=== PATIENT | female | born 1950 | race Caucasian/White ===

== ENCOUNTER 2017-07-12 21:37 | Observation (INO) | payer MEDICARE, OTHER ==
[2017-07-12] VITALS (9 sets, daily range): BP systolic 144–258; BP diastolic 73–128; PULSE 56–63; RESP 16–20; TEMP 98.3–98.7; O2SAT 97–99
[~2017-07-12] VITALS: Ht 157.5 cm; Wt 71.4 kg
[~2017-07-12 21:37] MED LIST: ALPR-138 PO; ASPI81 PO; BETA PO; LOSA25TA31 PO; PARO10S PO; SIMV5TAB32 PO
--- NOTE | 2017-07-12 22:12 | PD ---
Physical Exam Time Seen by Provider: 22:09 Narrative 66yo F c/o high blood pressure x couple days. Has taken BP medication as prescribed. +chest pressure, TRUJILLO and nausea. Denies SOB, blurred vision, vomiting. Patient seen in triage. VS reviewed. Awaiting bed placement. Data Data Last Documented VS Vital Signs Date Time Temp Pulse Resp B/P (MAP) Pulse Ox O2 Delivery O2 Flow Rate FiO2 07/12/17 21:39 98.7 58 16 258/128 (171) 97 Room Air [facility] Supervised Visit with KUSHAL: Cherry Yanez Jul 12, 2017 22:12
[2017-07-12] MEDS ORDERED: ENALAPRILAT 2.5 MG/2 ML VIAL IV PUSH ONE (22:30)
[2017-07-12] MEDS ORDERED: SODIUM CHLORIDE 0.9% FLUSH 10 ML FLUSH IVF PRN (22:30)
[2017-07-12] MEDS ORDERED: niCARdipine INJ 25 MG in SODIUM CHLOR 0.9% 250 ML INJ 250 ML IV ONE (22:30)
--- NOTE | 2017-07-12 22:37 | PD ---
HPI Chief Complaint: Chest Pain Time Seen by Provider: 22:25 (Luiz Amos) Time Seen by Provider: 23:11 (Terrence Bruno MD) Travel History International Travel<30 days: No Contact w/Intl Traveler<30days: No Traveled to known affect area: No (Luiz Amos) History of Present Illness HPI 66 year old female history of hypertension who presents for evaluation of hypertension, headache and chest heaviness. She reports that whenever her blood pressures elevated she feels a heaviness in her chest as well as a frontal headache. She felt the symptoms today and so she checked her blood pressure 250 systolic at the pharmacy. She reports that usually when she takes her Xanax her blood pressure improves. She says that this is the highest that she has seen her blood pressure. She is currently prescribed Cozaar 50 mg, Carolon 10 mg, which she has been compliant with however she did not take it tonight. The frontal headache is an aching pain which is constant, not thunderclap in nature and not the worst headache of her life. She reports that the chest heaviness is anterior and constant, worsened with hypertension. She denies any shortness of breath, nausea or vomiting, weakness, slurred speech, confusion. She has no personal history of coronary artery disease, diabetes, hyperlipidemia. She reports maternal history of coronary artery disease. Her last stress test was 15 years ago and she believes that it was normal. No other complaints. (Luiz Amos) PFSH Past Medical History Hx Anticoagulant Therapy: Yes (ASA) Cardiovascular Problems: Yes (HTN) High Cholesterol: Yes Hypertension: Yes Menopausal: Yes : 1 Para: 1 (Luiz Amos) Past Surgical History Section: Yes Other Surgery: Yes (HEMORRHOID SX) (Luiz Amos) Social History Alcohol Use: No Tobacco Use: No Substance Use: No (Luiz Amos) Allergies-Medications (Allergen,Severity, Reaction): Coded Allergies: No Known Allergies (Verified , 07/12/17) Reported Meds & Prescriptions Reported Meds & Active Scripts Active Reported Aspirin 81 (Aspirin) 81 Mg Tabdr 81 Mg PO DAILY Paxil (Paroxetine HCl) 10 Mg Tab 20 Mg PO DAILY Simvastatin 40 Mg Tab 40 Mg PO HS Cozaar (Losartan Potassium) 50 Mg Tab 50 Mg PO DAILY Betaxolol (Betaxolol HCl) 10 Mg Tab 10 Mg PO DAILY Xanax (Alprazolam) 0.25 Mg Tab 0.25 Mg PO Q6H PRN (Terrence Bruno MD) Review of Systems Except as stated in HPI: all other systems reviewed are Neg (Luiz Amos) Physical Exam Narrative GENERAL: Pleasant well developed well-nourished female in no acute distress her vital signs have been reviewed. SKIN: Warm and dry. HEAD: Atraumatic. Normocephalic. EYES: Pupils equal and round. No scleral icterus. No injection or drainage. ENT: No nasal bleeding or discharge. Mucous membranes pink and moist. NECK: Trachea midline. No JVD. CARDIOVASCULAR: Regular rate and rhythm. No murmur appreciated. RESPIRATORY: No accessory muscle use. Clear to auscultation. Breath sounds equal bilaterally. GASTROINTESTINAL: Abdomen soft, non-tender, nondistended. Hepatic and splenic margins not palpable. MUSCULOSKELETAL: No obvious deformities. No clubbing. No cyanosis. No edema. NEUROLOGICAL: Awake and alert. No obvious cranial nerve deficits. Motor grossly within normal limits. Normal speech. PSYCHIATRIC: Appropriate mood and affect; insight and judgment normal. (Luiz Amos) Data Data Last Documented VS Vital Signs Date Time Temp Pulse Resp B/P (MAP) Pulse Ox O2 Delivery O2 Flow Rate FiO2 07/13/17 00:08 56 20 147/80 (102) 98 Nasal Cannula 2.00 07/12/17 22:52 98.3 (Terrence Bruno MD) Orders Orders Electrocardiogram (07/12/17 22:29) Basic Metabolic Panel (Bmp) (07/12/17 22:29) Ckmb (Isoenzyme) Profile (07/12/17 22:29) Complete Blood Count With Diff (07/12/17 22:29) Magnesium (Mg) (07/12/17 22:29) Prothrombin Time / Inr (Pt) (07/12/17 22:29) Act Partial Throm Time (Ptt) (07/12/17 22:29) Troponin I (07/12/17 22:29) Chest, Single Ap (07/12/17 22:29) Ecg Monitoring (07/12/17 22:29) Bilateral Bp Monitoring (07/12/17 22:29) Iv Access Insert/Monitor (07/12/17 22:29) Oximetry (07/12/17 22:29) Oxygen Administration (07/12/17 22:29) Sodium Chloride 0.9% Flush (Ns Flush) (07/12/17 22:30) Enalaprilat Inj (Vasotec Inj) (07/12/17 22:30) Ct Brain W/O Iv Contrast(Rout) (07/12/17 ) Nicardipine Inj (Cardene Inj) (07/12/17 22:30) Aspirin Chew (Aspirin Chew) (07/12/17 23:45) Nitroglycerin Sl (Nitrostat Sl) (07/12/17 23:45) Admit Order (Ed Use Only) (07/13/17 00:06) (Terrence Bruno MD) Labs Laboratory Tests Test 07/12/17 22:40 White Blood Count 7.1 TH/MM3 Red Blood Count 4.41 MIL/MM3 Hemoglobin 13.7 GM/DL Hematocrit 40.5 % Mean Corpuscular Volume 91.9 FL Mean Corpuscular Hemoglobin 31.1 PG Mean Corpuscular Hemoglobin Concent 33.9 % Red Cell Distribution Width 13.5 % Platelet Count 258 TH/MM3 Mean Platelet Volume 9.4 FL Neutrophils (%) (Auto) 44.9 % Lymphocytes (%) (Auto) 42.1 % Monocytes (%) (Auto) 9.0 % Eosinophils (%) (Auto) 3.4 % Basophils (%) (Auto) 0.6 % Neutrophils # (Auto) 3.2 TH/MM3 Lymphocytes # (Auto) 3.0 TH/MM3 Monocytes # (Auto) 0.6 TH/MM3 Eosinophils # (Auto) 0.2 TH/MM3 Basophils # (Auto) 0.0 TH/MM3 CBC Comment DIFF FINAL Differential Comment Prothrombin Time 10.0 SEC Prothromb Time International Ratio 0.9 RATIO Activated Partial Thromboplast Time 25.0 SEC Blood Urea Nitrogen 16 MG/DL Creatinine 0.87 MG/DL Random Glucose 89 MG/DL Calcium Level 8.8 MG/DL Magnesium Level 2.6 MG/DL Sodium Level 141 MEQ/L Potassium Level 4.1 MEQ/L Chloride Level 103 MEQ/L Carbon Dioxide Level 29.5 MEQ/L Anion Gap 9 MEQ/L Estimat Glomerular Filtration Rate 65 ML/MIN Total Creatine Kinase 64 U/L Troponin I LESS THAN 0.02 NG/ML (Terrence Bruno MD) [facility] Medical Decision Making Medical Screen Exam Complete: Yes Emergency Medical Condition: Yes Medical Record Reviewed: Yes Interpretation(s) EKG sinus bradycardia rate 57 Differential Diagnosis Hypertension, hypertensive urgency, hypertensive emergency, acute coronary syndrome, aortic dissection, pneumothorax, pulmonary embolism, tension headache , migraine headache, intracranial hemorrhage Narrative Course 66-year-old female here for evaluation of hypertension, chest pressure and frontal headache. Physical examination is reassuring. The patient will be placed on ECG monitoring pulse oximetry. A 12-lead EKG was obtained interpreted. Plan is for basic lab work, chest x-ray, CT brain. She was placed on a Cardene drip for her severe hypertension. The patient's lab work and imaging studies have been reviewed and found be reassigned. Her blood pressure is improved to 146/78 on Cardene drip. Her discomfort as improved. She will be given a full dose aspirin as well as a nitroglycerin. This point in time the plan would be to admit the patient for further treatment of her hypertensive urgency, chest pain, cephalgia. Discussed with Dr. Chavarria who is agreeable with admission to Dr. Escobar, requests transitional orders to be placed. Because the patient is on a Cardene drip she is being placed into the intensive care unit. (Luiz Amos) Procedures EKG Prior to Arrival: Yes (Luiz Amos) Diagnosis Primary Impression: Hypertensive urgency Additional Impressions: Chest pain Qualified Codes: R07.9 - Chest pain, unspecified Cephalgia Qualified Codes: R51 - Headache Admitting Information Admitting Physician Requests: Admit (Luiz Amos) Luiz Amos Jul 12, 2017 22:37 Terrence Bruno MD Jul 13, 2017 10:14
--- NOTE | 2017-07-12 23:13 | RADRPT ---
EXAM DATE/TIME: 07/12/2017 22:24 [facility] COMPARISON: CHEST SINGLE AP, November 07, 2010, 13:31. INDICATIONS : Chest pain MEDICAL HISTORY : Hypertension. SURGICAL HISTORY : None. ENCOUNTER: Initial ACUITY: 1 week PAIN SCORE: 9/10 LOCATION: chest FINDINGS: A single view of the chest demonstrates the lungs to be symmetrically aerated without evidence of mas s, infiltrate or effusion. The cardiomediastinal contours are unremarkable. Osseous structures are intact. CONCLUSION: No acute disease. Jason Montano MD on July 12, 2017 at 23:11 Board Certified Radiologist. This report was verified electronically.
[2017-07-12 23:19] LABS: AUTOMATED NEUTROPHIL # 3.2 TH/MM3 (1.8-7.7); BASOPHIL % 0.6 % (0.0-2.0); EOSINOPHIL # 0.2 TH/MM3 (0-0.4); EOSINOPHIL % 3.4 % (0.0-4.0); HEMATOCRIT 40.5 % (35.0-46.0); HEMO FLAGS DIFF FINAL; LYMPH % 42.1 % (9.0-44.0); MEAN CELL VOLUME 91.9 FL (80.0-100.0); MEAN CORPUSCULAR HEMOGLOBIN 31.1 PG (27.0-34.0); MEAN CORPUSCULAR HGB CONC 33.9 % (32.0-36.0); NEUT % 44.9 % (16.0-70.0); PLATELET COUNT 258 TH/MM3 (150-450); RED BLOOD COUNT 4.41 MIL/MM3 (4.00-5.30); RED CELL DISTRIBUTION WIDTH 13.5 % (11.6-17.2); WHITE BLOOD COUNT 7.1 TH/MM3 (4.0-11.0)
[2017-07-12 23:25] LABS: ANION GAP 9 MEQ/L (5-15); BICARBONATE 29.5 MEQ/L (21.0-32.0); BLOOD UREA NITROGEN 16 MG/DL (7-18); CHLORIDE 103 MEQ/L (98-107); GLOMERULAR FILTRATION RATE 65 ML/MIN (>89); MAGNESIUM 2.6 MG/DL (1.5-2.5); POTASSIUM 4.1 MEQ/L (3.5-5.1); SODIUM (NA) 141 MEQ/L (136-145)
[2017-07-12 23:33] LABS: CREATINE KINASE 64 U/L (26-192)
--- NOTE | 2017-07-12 23:36 | RADRPT ---
EXAM DATE/TIME: 07/12/2017 23:13 [facility] COMPARISON: No previous studies available for comparison. INDICATIONS : Cephalgia. RADIATION DOSE: 56.77 CTDIvol (mGy) MEDICAL HISTORY : Hypertension. SURGICAL HISTORY : None. ENCOUNTER: Initial ACUITY: 1 day PAIN SCALE: 6/10 LOCATION: cranial TECHNIQUE: Multiple contiguous axial images were obtained of the head. Using automated exposure control and adj ustment of the mA and/or kV according to patient size, radiation dose was kept as low as reasonably a chievable to obtain optimal diagnostic quality images. DICOM format image data is available electro nically for review and comparison. FINDINGS: CEREBRUM: The ventricles are within normal limits. No evidence of midline shift, mass lesion, hemorrhage or ac eagle infarction. No extra-axial fluid collections are seen. POSTERIOR FOSSA: The cerebellum and brainstem are intact. The 4th ventricle is midline. The cerebellopontine angle i s unremarkable. EXTRACRANIAL: Visualized sinuses demonstrate no significant abnormality. SKULL: The calvaria is intact. No evidence of skull fracture. CONCLUSION: No acute intracranial abnormality is identified. Jason Flores MD on July 12, 2017 at 23:32 Board Certified Radiologist. This report was verified electronically.
[2017-07-12 23:38] LABS: INTERNATIONAL NORMALIZED RATIO 0.9 RATIO
[2017-07-12] MEDS ORDERED: NITROGLYCERIN 0.4 MG SL 25 TABS/BTL SL ONE (23:45)
[2017-07-12] MEDS ORDERED: ASPIRIN 81 MG CHEW TAB PO ONE (23:45)
[2017-07-13] VITALS (21 sets, daily range): BP systolic 127–164; BP diastolic 67–80; PULSE 50–84; RESP 16–21; TEMP 97.7–98.4; O2SAT 95–100
[2017-07-13] MEDS ORDERED: SODIUM CHLORIDE 0.9% FLUSH 10 ML FLUSH IV FLUSH PRN (00:15)
[2017-07-13] MEDS ORDERED: ASPI-110 PO (00:37)
[2017-07-13] MEDS ORDERED: ALPR.25 PO (00:37)
[2017-07-13] MEDS ORDERED: PAXI10TA2 PO (00:37)
[2017-07-13] MEDS ORDERED: BETA10TA PO (00:37)
[2017-07-13] MEDS ORDERED: SIMV40TA PO (00:37)
[2017-07-13] MEDS ORDERED: COZA50TA PO (00:37)
[2017-07-13] MEDS ORDERED: CHLORHEXIDINE GLUCONATE 2 % 1 PACK (2 CLOTHS)(extra cloths) TOPICAL PRN (03:15)
[2017-07-13 03:45] LABS: CREATINE KINASE 61 U/L (26-192)
[2017-07-13] MEDS: CHLORHEXIDINE GLUCONATE 2 % 1 PACK (2 CLOTHS)(taper/protocol) TOPICAL SCH (03:46)
[2017-07-13 06:10] LABS: CREATINE KINASE 50 U/L (26-192)
[2017-07-13] MEDS ORDERED: ALPRAZolam 0.25 MG TAB PO PRN (09:00)
[2017-07-13] MEDS: LOSARTAN 50 MG TAB PO SCH (09:58)
[2017-07-13] MEDS: ASPIRIN EC 81 MG TABEC PO SCH (09:59)
[2017-07-13] MEDS: PARoxetine HCL 20 MG TAB PO SCH (09:59)
[2017-07-13] MEDS: SODIUM CHLORIDE 0.9% FLUSH 10 ML FLUSH IV FLUSH SCH ×2 (09:59→20:44)
[2017-07-13] MEDS ORDERED: ACETAMINOPHEN 325 MG TAB PO PRN (10:00)
[2017-07-13] MEDS ORDERED: ONDANSETRON HCL 4 MG/2 ML VIAL IV PRN (10:00)
--- NOTE | 2017-07-13 10:11 | HHI.HP ---
HPI Service [facility] Hospitalists Primary Care Physician Dr. Arian Zhao Admission Diagnosis hypertensive urgency, chest pain, headache Chief Complaint: Headache Travel History International Travel<30 Days: No Contact w/Intl Traveler <30 Da: No Traveled to Known Affected Are: No History of Present Illness Ms. Hanson is a pleasant 66 y/o female with HTN, hyperlipidemia, and anxiety. She presented to the ED on 07/12/17 for evaluation of elevated BP, headache and chest heaviness. 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 Yesterday afternoon her blood pressure elevated with systolic BP into the 160's. She started having a frontal headache and some chest heaviness which she reports this has happened previously when her BP elevates. When this has happened in the past she typically will lie down and put a cold cloth on her head and take a Xanax which usually improves her BP. She rechecked her blood pressure later that evening and it was 250+ systolic at the pharmacy. She says that this is the highest that she has seen her blood pressure. This prompted her to come to the ED for further evaluation. She is currently prescribed Cozaar 50 mg daily and Betaxolol 10 mg daily which she has been compliant with. The frontal headache was more of an aching pain which was constant. She reports that the chest heaviness is left anterior and constant, worsened with hypertension. She denies any shortness of breath, nausea or vomiting, weakness, slurred speech, confusion. She denies any history of coronary artery disease, diabetes, hyperlipidemia. She reports maternal history of coronary artery disease. Her last stress test was 15 years ago and she believes that it was normal. Pt was started on a Cardene gtt at admission with improvement in her BP. This was stopped overnight. Her headache and chest heaviness resolved with the improvement in her BP. Review of Systems Constitutional: DENIES: Fever, Chills Eyes: COMPLAINS OF: Blurred vision (while she had the headache) Ears, nose, mouth, throat: DENIES: Hearing loss Respiratory: DENIES: Cough Cardiovascular: COMPLAINS OF: Chest pain, DENIES: Palpitations, Lower Extremity Edema Gastrointestinal: DENIES: Abdominal pain, Diarrhea, Nausea, Vomiting Genitourinary: DENIES: Hematuria, Dysuria Musculoskeletal: DENIES: Back pain, Neck pain Integumentary: DENIES: Rash Neurologic: COMPLAINS OF: Headache, DENIES: Paresthesias, Poor Balance Psychiatric: DENIES: Confusion Past Family Social History Past Medical History HTN Hyperlipidemia Anxiety Past Surgical History Hemorrhoidectomy x 2 Cesarian section Reported Medications Aspirin 81 Mg PO DAILY Paxil 20 Mg PO DAILY Simvastatin 40 Mg PO HS Cozaar 50 Mg PO DAILY Betaxolol 10 Mg PO DAILY Xanax 0.25 Mg PO Q6H PRN Allergies: Coded Allergies: No Known Allergies (Verified , 07/12/17) Family History Mother with a hx of CAD and during CABG Father at age 93 from natural causes Social History Remote hx of tobacco use, smoked 3-5 cigarettes/day for less than 5 years in her 20's Denies any alcohol or illicit drug use Pt is She has one adult son who is 24 y/o 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 Originally from [place] Physical Exam Vital Signs Vital Signs Date Time Temp Pulse Resp B/P (MAP) Pulse Ox O2 Delivery O2 Flow Rate FiO2 07/13/17 08:57 100 Nasal Cannula 2.00 07/13/17 06:00 50 07/13/17 04:00 51 07/13/17 04:00 51 16 134/72 (92) 98 07/13/17 03:20 54 19 140/70 (93) 98 07/13/17 03:09 07/13/17 02:37 60 16 142/78 (99) 99 Room Air 07/13/17 02:00 53 20 142/69 (93) 99 Nasal Cannula 2.00 07/13/17 01:32 52 20 140/70 (93) 99 Nasal Cannula 2.00 07/13/17 01:06 56 20 145/76 (99) 99 Nasal Cannula 2.00 07/13/17 00:46 53 20 150/72 (98) 07/13/17 00:28 98 Nasal Cannula 2.00 07/13/17 00:26 78 20 159/74 (102) 99 Nasal Cannula 2.00 07/13/17 00:16 68 20 127/70 (89) 98 Nasal Cannula 07/13/17 00:08 56 20 147/80 (102) 98 Nasal Cannula 2.00 07/12/17 23:52 59 20 145/73 (97) 98 2.00 07/12/17 23:45 98 2.00 07/12/17 23:44 60 20 145/73 (97) 99 Nasal Cannula 2.00 07/12/17 23:35 60 20 144/92 (109) Nasal Cannula 07/12/17 23:11 63 20 149/74 (99) 99 Nasal Cannula 2.00 07/12/17 23:03 99 Nasal Cannula 2.00 07/12/17 23:00 56 20 07/12/17 22:55 56 20 210/86 (127) 99 Nasal Cannula 2.00 202/95 (130) 07/12/17 22:52 98.3 56 20 210/86 (127) 98 Nasal Cannula 2.00 07/12/17 22:45 56 20 182/86 (118) 99 Nasal Cannula 2.00 07/12/17 22:30 57 210/86 07/12/17 21:39 98.7 58 16 258/128 (171) 97 Room Air Physical Exam GENERAL: This is a well-nourished, well-developed patient, in no apparent distress. SKIN: No rashes, ecchymoses or lesions. Cool and dry. HEENT: Atraumatic. Normocephalic. No temporal or scalp tenderness. No scleral icterus. Airway patent. NECK: Trachea midline, supple, nontender. CARDIO: Regular. RESP: CTA bilaterally. No wheezes, rales, or rhonchi. ABD: +BS soft, non-tender, nondistended. EXT: Extremities without clubbing, cyanosis, or edema. NEURO: Awake and alert. Motor and sensory grossly within normal limits. Normal speech. Laboratory Laboratory Tests Test 07/12/17 22:40 07/13/17 02:34 07/13/17 03:30 07/13/17 05:22 White Blood Count 7.1 Red Blood Count 4.41 Hemoglobin 13.7 Hematocrit 40.5 Mean Corpuscular Volume 91.9 Mean Corpuscular Hemoglobin 31.1 Mean Corpuscular Hemoglobin Concent 33.9 Red Cell Distribution Width 13.5 Platelet Count 258 Mean Platelet Volume 9.4 Neutrophils (%) (Auto) 44.9 Lymphocytes (%) (Auto) 42.1 Monocytes (%) (Auto) 9.0 Eosinophils (%) (Auto) 3.4 Basophils (%) (Auto) 0.6 Neutrophils # (Auto) 3.2 Lymphocytes # (Auto) 3.0 Monocytes # (Auto) 0.6 Eosinophils # (Auto) 0.2 Basophils # (Auto) 0.0 CBC Comment DIFF FINAL Differential Comment Prothrombin Time 10.0 Prothromb Time International Ratio 0.9 Activated Partial Thromboplast Time 25.0 Blood Urea Nitrogen 16 Creatinine 0.87 Random Glucose 89 Calcium Level 8.8 Magnesium Level 2.6 Sodium Level 141 Potassium Level 4.1 Chloride Level 103 Carbon Dioxide Level 29.5 Anion Gap 9 Estimat Glomerular Filtration Rate 65 Total Creatine Kinase 64 61 50 Troponin I LESS THAN 0.02 LESS THAN 0.02 LESS THAN 0.02 Nasal Screen MRSA (PCR) MRSA NOT DETECTED Result Diagram: 07/12/17223907/12/172239 Imaging Last Impressions Chest X-Ray 07/12/172228 Signed Impressions: Service Date/Time: June 22:24 - CONCLUSION: No acute disease. Jason Montano MD Head CT 07/12/17 0000 Signed Impressions: Service Date/Time: June 23:13 - CONCLUSION: No acute intracranial abnormality is identified. Jason Flores MD Septic Shock Reassessment Heart: Regular rate and rhythm Lungs: Clear Skin: Warm Caprini VTE Risk Assessment Caprini VTE Risk Assessment: Mod/High Risk (score >= 2) Caprini Risk Assessment Model Point Value = 1 Point Value = 2 Point Value = 3 Point Value = 5 Age 41-60 Minor surgery BMI > 25 kg/m2 Swollen legs Varicose veins or History of unexplained or recurrent spontaneous Oral contraceptives or hormone replacement Sepsis (< 1 month) Serious lung disease, including pneumonia (< 1 month) Abnormal pulmonary function Acute myocardial infarction Congestive heart failure (< 1 month) History of inflammatory bowel disease Medical patient at bed rest Age 61-74 Arthroscopic surgery Major open surgery (> 45 min) Laparoscopic surgery (> 45 min) Malignancy Confined to bed (> 72 hours) Immobilizing plaster cast Central venous access Age >= 75 History of VTE Family history of VTE Factor V Leiden Prothrombin [id number] Lupus anticoagulant Anticardiolipin antibodies Elevated serum homocysteine Heparin-induced thrombocytopenia Other congenital or acquired thrombophilia Stroke (< 1 month) Elective arthroplasty Hip, pelvis, or leg fracture Acute spinal cord injury (< 1 month) Prophylaxis Regimen Total Risk Factor Score Risk Level Prophylaxis Regimen 0-1 Low Early ambulation 2 Moderate Order ONE of the following: *Sequential Compression Device (SCD) *Heparin 5000 units SQ BID 3-4 Higher Order ONE of the following medications: *Heparin 5000 units SQ TID *Enoxaparin/Lovenox 40 mg SQ daily (WT < 150 kg, CrCl > 30 mL/min) *Enoxaparin/Lovenox 30 mg SQ daily (WT < 150 kg, CrCl > 10-29 mL/min) *Enoxaparin/Lovenox 30 mg SQ BID (WT < 150 kg, CrCl > 30 mL/min) AND/OR *Sequential Compression Device (SCD) 5 or more Highest Order ONE of the following medications: *Heparin 5000 units SQ TID (Preferred with Epidurals) *Enoxaparin/Lovenox 40 mg SQ daily (WT < 150 kg, CrCl > 30 mL/min) *Enoxaparin/Lovenox 30 mg SQ daily (WT < 150 kg, CrCl > 10-29 mL/min) *Enoxaparin/Lovenox 30 mg SQ BID (WT < 150 kg, CrCl > 30 mL/min) AND *Sequential Compression Device (SCD) Assessment and Plan Problem List: (1) Hypertensive urgency ICD Codes: I16.0 - Hypertensive urgency Status: Acute Plan: - Pt is a 66 y/o female with HTN, hyperlipidemia, and anxiety. - Presented to the ED on 07/12/17 for evaluation of elevated BP, headache and chest heaviness which began that day after she had a very stressful day at work. - She started having a frontal headache and some chest heaviness which she reports this has happened previously when her BP elevates. This did not improve with Xanax which usually improves her BP. She rechecked her blood pressure later that evening and it was 250+ systolic at the pharmacy. - Pt was started on a Cardene gtt at admission with improvement in her BP. This was stopped overnight. - Her headache and chest heaviness resolved with the improvement in her BP. - Head CT was negative for any acute changes - CXR was negative. - We will resume her Cozaar 50mg po daily - We will hold on resuming her Betaxolol as her HR has been in the 50's. She states that she had actually decreased her dose recently down to 5mg daily as she had noticed her HR going slower. - Continue to monitor vitals today and monitor HR on telemetry - Cont. ASA - Clonidine PRN - Vasotec PRN - DVT prophylaxis with SCDs (2) Chest pain ICD Codes: R07.9 - Chest pain, unspecified Status: Acute Plan: - See above (3) Cephalgia ICD Codes: R51 - Headache Status: Acute Plan: - See above. (4) Hyperlipidemia ICD Codes: E78.5 - Hyperlipidemia, unspecified Plan: - Home meds resumed Assessment and Plan Patient examined. Assessment and plan formulated with Kailey Villaseñor PA-C. I agree with the above. Pt weaned off of cardene drip overnight. Pt resumed on outpt coazaar 50mg daily. Pt NOT resume on BB d/t HR in the 50s. Pt now with reasonable BP control. continue xanax prn agitation/anxiety. Anticipate d/c to home 07/14/17 Physician Certification 2 Midnight Certification Type: Admission for Inpatient Services Order for Inpatient Services The services are ordered in accordance with Medicare regulations or non- Medicare payer requirements, as applicable. In the case of services not specified as inpatient-only, they are appropriately provided as inpatient services in accordance with the 2-midnight benchmark. Estimated LOS (days): 2 2 days is the estimated time the patient will need to remain in the hospital, assuming treatment plan goals are met and no additional complications. Post-Hospital Plan: Home Problem Qualifiers (1) Chest pain: Qualified Codes: R07.9 - Chest pain, unspecified (2) Cephalgia: Qualified Codes: R51 - Headache Kailey Villaseñor Jul 13, 2017 10:11 Pavan Escobar DO Jul 14, 2017 00:16
[2017-07-13] MEDS ORDERED: ENALAPRILAT 1.25 MG/ML VIAL IV PUSH PRN (10:45)
[2017-07-13] MEDS ORDERED: cloNIDine HCL 0.1 MG TAB PO PRN (10:45)
--- NOTE | 2017-07-13 20:40 | EKG ---
Date Performed: 07/13/2017 Time Performed: 05:06:54 PTAGE: 66 years EKG: Sinus bradycardia. Prolonged QT interval Borderline ECG PREVIOUS TRACING : 07/13/2017 02.33 Compared to the previous tracing, QTC is mildly more prolon ged DOCTOR: Desean Rogers Interpretating Date/Time 07/13/2017 20:39:32
[2017-07-13] MEDS ORDERED: PRAVASTATIN SOD 80 MG TAB PO SCH (21:00)
[2017-07-14] VITALS (7 sets, daily range): BP systolic 149–155; BP diastolic 75–81; PULSE 57–69; RESP 18–20; TEMP 97.4–97.9; O2SAT 94–96
--- NOTE | 2017-07-14 00:29 | EKG ---
Date Performed: 07/13/2017 Time Performed: 02:33:57 PTAGE: 66 years EKG: SINUS BRADYCARDIA BORDERLINE ECG PREVIOUS TRACING : 07/12/2017 22.34 Compared to prior tracing no significant change DOCTOR: Desean Rogers Interpretating Date/Time 07/14/2017 00:28:17
--- NOTE | 2017-07-14 00:46 | EKG ---
Date Performed: 07/12/2017 Time Performed: 22:34:26 PTAGE: 66 years EKG: SINUS BRADYCARDIA BORDERLINE ECG PREVIOUS TRACING : 11/07/2010 19.39 Compared to prior tracing no significant change DOCTOR: Desean Rogers Interpretating Date/Time 07/14/2017 00:45:05
[2017-07-14] MEDS: CHLORHEXIDINE GLUCONATE 2 % 1 PACK (2 CLOTHS)(taper/protocol) TOPICAL SCH (04:00)
[2017-07-14] MEDS: ASPIRIN EC 81 MG TABEC PO SCH (09:06)
[2017-07-14] MEDS: LOSARTAN 50 MG TAB PO SCH (09:06)
[2017-07-14] MEDS: PARoxetine HCL 20 MG TAB PO SCH (09:06)
[2017-07-14] MEDS: SODIUM CHLORIDE 0.9% FLUSH 10 ML FLUSH IV FLUSH SCH (09:07)
--- NOTE | 2017-07-14 15:33 | HHI.PR ---
Subjective Remarks Patient seen with son at bedside. Patient reports feeling better- feels ready to go home Objective Vitals Vital Signs Date Time Temp Pulse Resp B/P (MAP) Pulse Ox O2 Delivery O2 Flow Rate FiO2 07/14/17 12:11 97.6 57 18 151/77 (101) 96 07/14/17 10:00 58 07/14/17 09:00 96 Room Air 07/14/17 08:06 97.4 60 18 155/78 (103) 95 07/14/17 05:52 94 07/14/17 04:00 97.6 60 20 150/75 (100) 96 07/14/17 00:00 97.6 57 19 149/76 (100) 94 07/13/17 20:08 84 07/13/17 20:00 98.1 62 20 135/72 (93) 95 07/13/17 19:49 Room Air 07/13/17 16:00 97.7 54 20 146/74 (98) 96 07/13/17 15:57 57 Result Diagram: 07/12/170 07/12/170 Other Results Laboratory Tests Test 07/12/17 22:40 07/13/17 02:34 07/13/17 03:30 07/13/17 05:22 White Blood Count 7.1 TH/MM3 Red Blood Count 4.41 MIL/MM3 Hemoglobin 13.7 GM/DL Hematocrit 40.5 % Mean Corpuscular Volume 91.9 FL Mean Corpuscular Hemoglobin 31.1 PG Mean Corpuscular Hemoglobin Concent 33.9 % Red Cell Distribution Width 13.5 % Platelet Count 258 TH/MM3 Mean Platelet Volume 9.4 FL Neutrophils (%) (Auto) 44.9 % Lymphocytes (%) (Auto) 42.1 % Monocytes (%) (Auto) 9.0 % Eosinophils (%) (Auto) 3.4 % Basophils (%) (Auto) 0.6 % Neutrophils # (Auto) 3.2 TH/MM3 Lymphocytes # (Auto) 3.0 TH/MM3 Monocytes # (Auto) 0.6 TH/MM3 Eosinophils # (Auto) 0.2 TH/MM3 Basophils # (Auto) 0.0 TH/MM3 CBC Comment DIFF FINAL Differential Comment Prothrombin Time 10.0 SEC Prothromb Time International Ratio 0.9 RATIO Activated Partial Thromboplast Time 25.0 SEC Blood Urea Nitrogen 16 MG/DL Creatinine 0.87 MG/DL Random Glucose 89 MG/DL Calcium Level 8.8 MG/DL Magnesium Level 2.6 MG/DL Sodium Level 141 MEQ/L Potassium Level 4.1 MEQ/L Chloride Level 103 MEQ/L Carbon Dioxide Level 29.5 MEQ/L Anion Gap 9 MEQ/L Estimat Glomerular Filtration Rate 65 ML/MIN Total Creatine Kinase 64 U/L 61 U/L 50 U/L Troponin I LESS THAN 0.02 NG/ML LESS THAN 0.02 NG/ML LESS THAN 0.02 NG/ML Nasal Screen MRSA (PCR) MRSA NOT DETECTED Imaging Last Impressions Chest X-Ray 07/12/17 2229 Signed Impressions: Service Date/Time: , July 12, 2017 22:24 - CONCLUSION: No acute disease. Jason Montano MD Head CT 07/12/17 0000 Signed Impressions: Service Date/Time: , July 12, 2017 23:13 - CONCLUSION: No acute intracranial abnormality is identified. Jason Flores MD Objective Remarks GENERAL: This is a well-nourished, well-developed patient, in no apparent distress. CARDIO: Regular. RESP: CTA bilaterally. No wheezes, rales, or rhonchi. ABD: +BS soft, non-tender, nondistended. EXT: Extremities without clubbing, cyanosis, or edema. NEURO: Awake and alert. Motor and sensory grossly within normal limits. Normal speech. A/P Problem List: (1) Hypertensive urgency ICD Codes: I16.0 - Hypertensive urgency Status: Acute Plan: - Pt is a 66 y/o female with HTN, hyperlipidemia, and anxiety. - Presented to the ED on 07/12/17 for evaluation of elevated BP, headache and chest heaviness which began that day after she had a very stressful day at work. - She started having a frontal headache and some chest heaviness which she reports this has happened previously when her BP elevates. This did not improve with Xanax which usually improves her BP. She rechecked her blood pressure later that evening and it was 250+ systolic at the pharmacy. - Pt was started on a Cardene gtt at admission with improvement in her BP. This was stopped overnight. - Her headache and chest heaviness resolved with the improvement in her BP. - Head CT was negative for any acute changes - CXR was negative. - increase Cozaar 50mg po BID - hold on resuming her Betaxolol as her HR has been in the 50's- 60. She states that she had actually decreased her dose recently down to 5mg daily as she had noticed her HR going slower. -BP and HR improved today - Cont. ASA - Clonidine PRN while in hospital - Vasotec PRN while in hospital - DVT prophylaxis with SCDs (2) Chest pain ICD Codes: R07.9 - Chest pain, unspecified Status: Acute Plan: - See above (3) Cephalgia ICD Codes: R51 - Headache Status: Resolved Plan: - See above. (4) Hyperlipidemia ICD Codes: E78.5 - Hyperlipidemia, unspecified Plan: - Home meds resumed (5) Dermatitis ICD Codes: L30.9 - Dermatitis, unspecified Plan: apply hydrocortisone 2.5% topically to bilateral upper extremity affect area BID for 1 week then stop follow up with PCP Assessment and Plan DC patient home in stable condition on Cozaar 50 mg PO BID decrease Betaxolol to half dose for 1 week then stop taking Hydrocortisone 2.5% topically on bilateral upper extremities BID for 1 week follow up with new PCP Dr. Harpreet Zhao in 1 week heart healthy diet no activity restrictions Patient examined. Assessment and plan formulated with Bebe Vincent PA-C. I agree with the above. Problem Qualifiers (1) Chest pain: Qualified Codes: R07.9 - Chest pain, unspecified (2) Cephalgia: Qualified Codes: R51 - Headache Bebe Vincent Jul 14, 2017 15:33 Pavan Escobar DO Jul 14, 2017 22:59
[2017-07-14] MEDS ORDERED: PAXI10TA2 PO (16:02)
[2017-07-14] MEDS ORDERED: COZA50TA PO (16:02)
[2017-07-14] MEDS ORDERED: HYDR-4204 TOPICAL (16:13)
== END 2017-07-14 18:58 | disposition home or self-care (01) ==
LOC: NEPD 21:37 → NEDA 07-13 00:08 → UNDOADMIN 07-13 00:08 → HIMN 07-13 02:50 → NEDA 07-13 02:50 → INTOOBSV 07-13 10:55 → NEDA 07-13 10:55 → HIMN 07-13 10:55 → N04A 07-13 14:52 → UNDODISIN 07-14 18:58
PROVIDERS: ADMIT Hospitalist; ATTEND Hospitalist
DX: I16.0 Hypertensive urgency (principal); F41.9 Anxiety disorder, unspecified; R51 Headache; E78.00 Pure hypercholesterolemia, unspecified; I10 Essential (primary) hypertension; L30.9 Dermatitis, unspecified; R94.31 Abnormal electrocardiogram [ECG] [EKG]; Z87.891 Personal history of nicotine dependence; Z82.49 Family history of ischemic heart disease and other diseases of the circulatory system; Z79.82 Long term (current) use of aspirin
CPT/HCPCS: 70450; 71010; 80048; 82550; 83735; 84484; 85025; 85610; 85730; 87641; 93005; 96365; 96366; 99285; G0378; J7050

== ENCOUNTER 2017-09-28 02:44 | Emergency (ER) | payer MEDICARE, OTHER ==
[~2017-09-28] VITALS: Ht 162.6 cm; Wt 80.0 kg
[~2017-09-28 02:44] MED LIST changes: -ALPR-138 PO; +ALPR.25 PO; +ASPI1TAB57 PO; -ASPI81 PO; -BETA PO; +COZA50TA PO; +HYDR-4204 TOPICAL; -LOSA25TA31 PO; -PARO10S PO; +PAXI10TA8 PO; +SIMV40TA PO; -SIMV5TAB32 PO
[2017-09-28 02:48] VITALS: PULSE 87; RESP 16; O2SAT 94
[2017-09-28] MEDS ORDERED: PANTOPRAZOLE SODIUM 40 MG VIAL IV PUSH ONE (03:30)
--- NOTE | 2017-09-28 03:47 | RADRPT ---
EXAM DATE/TIME: 09/28/2017 03:23 [facility] COMPARISON: CHEST SINGLE AP, July 12, 2017, 22:24. INDICATIONS : Chest pain. MEDICAL HISTORY : Hypertension. SURGICAL HISTORY : None. ENCOUNTER: Initial ACUITY: 1 day PAIN SCORE: 8/10 LOCATION: Left chest FINDINGS: A single view of the chest demonstrates the lungs to be symmetrically aerated without evidence of mas s, infiltrate or effusion. The cardiomediastinal contours are unremarkable with stable mild tortuosi ty descending thoracic aorta. Mild elevation left hemidiaphragm unchanged from prior. Osseous struc tures are intact. CONCLUSION: No acute findings. The lungs are clear. Nithin Jones MD on September 28, 2017 at 3:45 Board Certified Radiologist. This report was verified electronically.
[2017-09-28 03:54] LABS: ALKALINE PHOSPHATASE 64 U/L (45-117); TOTAL BILIRUBIN ADULT 0.2 MG/DL (0.2-1.0)
[2017-09-28 03:57] LABS: ALT (GPT) 22 U/L (10-53); ANION GAP 8 MEQ/L (5-15); AST (GOT) 18 U/L (15-37); BICARBONATE 24.1 MEQ/L (21.0-32.0); BLOOD UREA NITROGEN 16 MG/DL (7-18); CHLORIDE 109 MEQ/L (98-107); GLOMERULAR FILTRATION RATE 87 ML/MIN (>89); POTASSIUM 3.3 MEQ/L (3.5-5.1); SODIUM (NA) 141 MEQ/L (136-145)
[2017-09-28 04:09] LABS: AUTOMATED NEUTROPHIL # 3.7 TH/MM3 (1.8-7.7); BASOPHIL % 0.7 % (0.0-2.0); EOSINOPHIL # 0.4 TH/MM3 (0-0.4); EOSINOPHIL % 5.9 % (0.0-4.0); HEMATOCRIT 40.2 % (35.0-46.0); HEMO FLAGS DIFF FINAL; LYMPH % 35.9 % (9.0-44.0); LYMPHOCYTE # 2.7 TH/MM3 (1.0-4.8); MEAN CELL VOLUME 92.1 FL (80.0-100.0); MEAN CORPUSCULAR HEMOGLOBIN 30.7 PG (27.0-34.0); MEAN CORPUSCULAR HGB CONC 33.3 % (32.0-36.0); MONO % 8.2 % (0.0-8.0); NEUT % 49.3 % (16.0-70.0); PLATELET COUNT 260 TH/MM3 (150-450); RED BLOOD COUNT 4.37 MIL/MM3 (4.00-5.30); RED CELL DISTRIBUTION WIDTH 13.7 % (11.6-17.2); WHITE BLOOD COUNT 7.5 TH/MM3 (4.0-11.0)
--- NOTE | 2017-09-28 04:42 | PD ---
HPI Chief Complaint: Chest Pain Time Seen by Provider: 02:50 Travel History International Travel<30 days: No Contact w/Intl Traveler<30days: No Traveled to known affect area: No History of Present Illness HPI Patient is a 66-year-old female who said from it deep sleep she was awakened by substernal chest pain area she did not take anything to make it better. She called 911. It started an hour before arrival by the paramedics who gave her sublingual nitroglycerin. She said that made "it much worse " and turning to epigastric pain. She reports having had a stress test in the last 3 months that apparently was normal. Patient in the ER shows substernal epigastric pain. Patient is holding her epigastrium. Patient refuses Protonix . The pain is a burning feeling localized in the epigastrium she has not seen another doctor for this episode. There is no radiation of pain and she denies SOB no LEFT arm pain and no dysphoresis. PFSH Past Medical History Hx Anticoagulant Therapy: Yes (ASA) Anxiety: Yes Cancer: No Cardiac Catheterization: Yes Cardiovascular Problems: Yes (HTN) High Cholesterol: Yes Diminished Hearing: No Endocrine: No Gastrointestinal Disorders: No Genitourinary: No Hypertension: Yes Medical other: Yes (STRESS TEST ) Musculoskeletal: No Neurologic: No Reproductive: No Respiratory: No Menopausal: Yes : 1 Para: 1 Past Surgical History Section: Yes (1992) Hysterectomy: No Other Surgery: Yes (HEMORRHOID SX) Social History Alcohol Use: No Tobacco Use: No Substance Use: No Allergies-Medications (Allergen,Severity, Reaction): Coded Allergies: No Known Allergies (Verified Adverse Reaction, Unknown, 09/28/17) Reported Meds & Prescriptions Reported Meds & Active Scripts Active Macrobid (Nitrofurantoin Monoh/Nitrofur Macro) 100 Mg Cap 100 Mg PO BID 5 Days Cozaar (Losartan Potassium) 50 Mg Tab 50 Mg PO BID Paxil (Paroxetine HCl) 10 Mg Tab 20 Mg PO DAILY Reported Aspirin 81 (Aspirin) 81 Mg Tabdr 81 Mg PO DAILY Simvastatin 40 Mg Tab 40 Mg PO HS Xanax (Alprazolam) 0.25 Mg Tab 0.25 Mg PO Q6H PRN Review of Systems Except as stated in HPI: all other systems reviewed are Neg Cardiovascular: Positive: Chest Pain or Discomfort Gastrointestinal: Positive: Abdominal Pain Physical Exam Narrative GENERAL: no distress , no resp distress, non toxic appearing SKIN: Warm and dry. HEAD: Atraumatic. Normocephalic. EYES: Pupils equal and round. No scleral icterus. No injection or drainage. ENT: No nasal bleeding or discharge. Mucous membranes pink and moist. NECK: Trachea midline. No JVD. CARDIOVASCULAR: Regular rate and rhythm. BP normal . RESPIRATORY: No accessory muscle use. Clear to auscultation. Breath sounds equal bilaterally. GASTROINTESTINAL: Abdomen soft, non-tender, nondistended. Hepatic and splenic margins not palpable. MUSCULOSKELETAL: Extremities without clubbing, cyanosis, or edema. No obvious deformities. NEUROLOGICAL: Awake and alert. No obvious cranial nerve deficits. Motor grossly within normal limits. Five out of 5 muscle strength in the arms and legs. Normal speech. PSYCHIATRIC: Appropriate mood and affect; insight and judgment normal. Data Data Last Documented VS Vital Signs Date Time Temp Pulse Resp B/P (MAP) Pulse Ox O2 Delivery O2 Flow Rate FiO2 09/28/17 07:35 09/28/17 06:44 59 18 97 Room Air Orders Orders Complete Blood Count With Diff (09/28/17 03:19) Comprehensive Metabolic Panel (09/28/17 03:19) Troponin I (09/28/17 03:19) Ua Includes Microscopic (09/28/17 03:19) Chest, Single Ap (09/28/17 ) Pantoprazole Inj (Protonix Inj) (09/28/17 03:30) Lipase (09/28/17 05:30) Troponin I (09/28/17 06:10) Electrocardiogram (09/28/17 ) Ed Discharge Order (09/28/17 07:07) Electrocardiogram (09/28/17 02:50) Labs Laboratory Tests Test 09/28/17 03:22 09/28/17 05:15 09/28/17 06:16 White Blood Count 7.5 TH/MM3 Red Blood Count 4.37 MIL/MM3 Hemoglobin 13.4 GM/DL Hematocrit 40.2 % Mean Corpuscular Volume 92.1 FL Mean Corpuscular Hemoglobin 30.7 PG Mean Corpuscular Hemoglobin Concent 33.3 % Red Cell Distribution Width 13.7 % Platelet Count 260 TH/MM3 Mean Platelet Volume 9.5 FL Neutrophils (%) (Auto) 49.3 % Lymphocytes (%) (Auto) 35.9 % Monocytes (%) (Auto) 8.2 % Eosinophils (%) (Auto) 5.9 % Basophils (%) (Auto) 0.7 % Neutrophils # (Auto) 3.7 TH/MM3 Lymphocytes # (Auto) 2.7 TH/MM3 Monocytes # (Auto) 0.6 TH/MM3 Eosinophils # (Auto) 0.4 TH/MM3 Basophils # (Auto) 0.0 TH/MM3 CBC Comment DIFF FINAL Differential Comment Blood Urea Nitrogen 16 MG/DL Creatinine 0.68 MG/DL Random Glucose 152 MG/DL Total Protein 5.9 GM/DL Albumin 3.0 GM/DL Calcium Level 7.6 MG/DL Alkaline Phosphatase 64 U/L Aspartate Amino Transf (AST/SGOT) 18 U/L Alanine Aminotransferase (ALT/SGPT) 22 U/L Total Bilirubin 0.2 MG/DL Sodium Level 141 MEQ/L Potassium Level 3.3 MEQ/L Chloride Level 109 MEQ/L Carbon Dioxide Level 24.1 MEQ/L Anion Gap 8 MEQ/L Estimat Glomerular Filtration Rate 87 ML/MIN Troponin I LESS THAN 0.02 NG/ML LESS THAN 0.02 NG/ML Urine Color YELLOW Urine Turbidity CLOUDY Urine pH 7.0 Urine Specific [place] 1.018 Urine Protein TRACE mg/dL Urine Glucose (UA) NEG mg/dL Urine Ketones 10 mg/dL Urine Occult Blood NEG Urine Nitrite NEG Urine Bilirubin NEG Urine Urobilinogen LESS THAN 2.0 MG/DL Urine Leukocyte Esterase LARGE Urine RBC 4 /hpf Urine WBC 15 /hpf Urine Squamous Epithelial Cells 3 /hpf Urine Renal Epithelial Cells <1 /hpf Urine Amorphous Sediment OCC Urine Bacteria MANY /hpf Lipase 264 U/L MDM Medical Decision Making Medical Screen Exam Complete: Yes Emergency Medical Condition: Yes Interpretation(s) EKG NSR 74 Differential Diagnosis GERD vs GAstritis VS ACS vs Ischemic cardiac pain versus pulmonary PNA Narrative Course Patient had 2 EKGs which were normal sinus rhythm she has 2 troponins that are negative and she has a slight UTI which I will give her Macrobid prescription to go home with discharge will be GERD and UTI Diagnosis Primary Impression: Atypical chest pain Additional Impression: UTI (urinary tract infection) Qualified Codes: N30.00 - Acute cystitis without hematuria Patient Instructions: Chest Pain (ED), General Instructions, Urinary Tract Infection in Women (ED) Scripts Nitrofurantoin Monohydrate Macrocrystals (Macrobid) 100 Mg Cap 100 MG PO BID for Infection for 5 Days, #10 CAP 0 Refills Prov: Karan Bianchi MD 09/28/17 Disposition: 01 DISCHARGE HOME Condition: Good Karan Bianchi MD Sep 28, 2017 04:42
[2017-09-28 05:41] LABS: BACTERIA, URINE MANY /hpf; BLOOD, URINE NEG (NEG); GLUCOSE,URINE NEG (NEG); KETONE, URINE 10 mg/dL (NEG); NITRITE,URINE NEG (NEG); RENAL EPITHELIAL CELLS <1 /hpf; SQUAMOUS EPITHELIAL CELL URINE 3 /hpf (0-5); URINE COLOR YELLOW (YELLW/STRAW)
[2017-09-28 06:44] VITALS: BP 131/70; PULSE 59; RESP 18; O2SAT 97
[2017-09-28] MEDS ORDERED: MACR100C2 PO (06:46)
--- NOTE | 2017-09-28 17:40 | EKG ---
Date Performed: 09/28/2017 Time Performed: 06:39:31 PTAGE: 66 years EKG: SINUS BRADYCARDIA BORDERLINE ECG Since PREVIOUS TRACING , no significant change noted PREVIOUS TRACING 09/28/2017 02.50.45 DOCTOR: Eric Driscoll Interpretating Date/Time 09/28/2017 17:38:58
--- NOTE | 2017-09-28 17:40 | EKG ---
Date Performed: 09/28/2017 Time Performed: 02:50:45 PTAGE: 66 years EKG: Sinus rhythm NORMAL ECG Compared to PREVIOUS TRACING , QT interval no longer prolonged, otherwise no significant change. PREV IOUS TRACIN07/13/2017 05.06 DOCTOR: Eric Driscoll Interpretating Date/Time 09/28/2017 17:38:40
== END 2017-09-28 07:35 | disposition home or self-care (01) ==
LOC: NEPC 02:44
DX: R07.89 Other chest pain (principal); N30.00 Acute cystitis without hematuria
CPT/HCPCS: 71010; 80053; 81001; 83690; 84484; 85025; 93005; 96374